=== PATIENT | male | born 1980 | race Caucasian/White ===

== ENCOUNTER 2018-07-10 15:21 | Emergency (ER) | payer OTHER ==
[~2018-07-10] VITALS: Ht 182.9 cm; Wt 97.5 kg
== END 2018-07-10 21:44 | disposition home or self-care (01) ==
LOC: ER 15:21
DX: S49.81XA Other specified injuries of right shoulder and upper arm, initial encounter (principal); W18.39XA Other fall on same level, initial encounter; Y93.89 Activity, other specified; Y92.89 Other specified places as the place of occurrence of the external cause; Y99.8 Other external cause status

== ENCOUNTER 2023-03-31 14:30 | Outpatient (CLI) | payer OTHER | END 2023-03-31 14:48 | disposition home or self-care (01) | LOC: MRI 14:30 | DX: M51.26 Other intervertebral disc displacement, lumbar region (principal) | CPT/HCPCS: 72148 ==

== ENCOUNTER 2024-09-25 14:18 | Outpatient (CLI) | payer OTHER | END 2024-09-25 14:40 | disposition home or self-care (01) | LOC: TOM 14:18 | PROVIDERS: ATTEND Neurological Surgery | DX: M54.50 Low back pain, unspecified (principal); M46.1 Sacroiliitis, not elsewhere classified; M96.1 Postlaminectomy syndrome, not elsewhere classified ==

== ENCOUNTER 2025-02-07 12:24 | Outpatient (CLI) | payer OTHER | END 2025-02-07 12:31 | disposition home or self-care (01) | LOC: RAD 12:24 | PROVIDERS: ATTEND Internal Medicine Pulmonary Disease | DX: M54.16 Radiculopathy, lumbar region (principal); M54.50 Low back pain, unspecified; J42 Unspecified chronic bronchitis; J45.30 Mild persistent asthma, uncomplicated ==